=== PATIENT | female | born 1940 | race Caucasian/White ===

== ENCOUNTER 2021-11-04 16:25 | Emergency (ER) | payer OTHER ==
[2021-11-04 16:46] VITALS: TEMP 98.8; BMI 21.7
[2021-11-04 17:46] VITALS: BP 148/77; PULSE 73
== END 2021-11-04 17:45 | disposition home or self-care (01) ==
LOC: FER 16:25
DX: S43.011A Anterior subluxation of right humerus, initial encounter (principal); S43.421A Sprain of right rotator cuff capsule, initial encounter; W01.0XXA Fall on same level from slipping, tripping and stumbling without subsequent striking against object, initial encounter
CPT/HCPCS: 73030-TC-RT-FY; 99283-25